=== PATIENT | female | born 1995 | race Caucasian/White ===

== ENCOUNTER 2023-10-09 09:35 | Emergency (ER) | payer OTHER ==
[~2023-10-09] VITALS: Ht 157.5 cm; Wt 49.9 kg
[2023-10-09 11:01] LABS: PREGNANCY TEST URINE QUAL NEGATIVE (NEGATIVE)
[2023-10-09 11:03] LABS: BASOPHILS # (AUTO) 0.1 K/uL (0.0-0.2); BASOPHILS % (AUTO) 1.2 % (0.0-2.0); EOSINOPHILS # (AUTO) 0.2 K/uL (0.0-0.7); EOSINOPHILS % (AUTO) 3.1 % (0.0-6.0); HEMATOCRIT 38 % (33-45); LYMPHOCYTES # (AUTO) 1.8 K/uL (0.8-4.8); LYMPHOCYTES % (AUTO) 25.4 % (20.0-44.0); MEAN CORPUSCULAR HEMOGLOBIN 30 PG (26.0-33.0); MEAN CORPUSCULAR HGB CONC 34 g/dl (31.0-36.0); MEAN CORPUSCULAR VOLUME 89 fL (82-100); MONOCYTES # (AUTO) 0.8 K/uL (0.1-1.30); MONOCYTES % (AUTO) 11.1 % (2.0-12.0); NEUTROPHILS # (AUTO) 4.2 K/uL (1.8-8.9); NEUTROPHILS % (AUTO) 59.2 % (43.0-81.0); PLATELET COUNT (AUTO) 274 K/uL (150-450); RED BLOOD CELL COUNT(AUTO) 4.29 MIL/uL (4.0-5.2); RED CELL DISTRIBUTION WIDTH 12.1 % (11.5-15.0)
[2023-10-09] MEDS ORDERED: IV NS 0.9% 250 ML IV ONE (11:33)
[2023-10-09] MEDS ORDERED: IOHEXOL-300 100 ML VIAL IV ONE (11:33)
[2023-10-09 11:48] LABS: CALCIUM, SERUM 9.6 mg/dL (8.5-10.1); CARBON DIOXIDE 25 mmol/L (21-32); CHLORIDE 102 mmol/L (98-107); CREATININE 0.5 mg/dL (0.6-1.3); GLUCOSE 86 mg/dL (74-106); POTASSIUM 3.9 mmol/L (3.5-5.1); SODIUM SERUM 138 mmol/L (136-145); UREA NITROGEN, BLOOD 7 mg/dL (7-18)
[2023-10-09] MEDS: IV NS 0.9% 1,000 ML BAG IV ONE (13:14)
[2023-10-09] MEDS ORDERED: DIAZ2TAB PO (13:42)
[2023-10-09 13:59] VITALS: BP 120/88; TEMP 98.2; O2SAT 96
== END 2023-10-09 13:59 | disposition home or self-care (01) ==
LOC: ER 09:41
DX: R42 Dizziness and giddiness (principal); F41.9 Anxiety disorder, unspecified
CPT/HCPCS: 99285; 70498; 96360; 71045; 93005; 70496; 85025; 80048; 83735; 84703; 36415; 84484; J7030; J7050; Q9967